=== PATIENT | male | born 1995 | race Caucasian/White ===

== ENCOUNTER 2017-08-05 01:40 | Emergency (ER) | payer SELFPAY ==
[2017-08-05 01:52] VITALS: BP 160/83
--- NOTE | 2017-08-05 02:01 | EDM.PDOC ---
ED HPI GENERAL MEDICAL PROBLEM - General Chief Complaint: Lower Extremity Injury/Pain Stated Complaint: LEFT KNEE INJURY Time Seen by Provider: 08/05/17 01:55 Source of Information: Reports: Patient History Limitations: Reports: No Limitations - History of Present Illness INITIAL COMMENTS - FREE TEXT/NARRATIVE: The patient his his left knee with a sledge hammer yesterday afternoon. He could limp on his knee but not walk very well. He has had increased pain through the night. Onset: Sudden Duration: Day(s): (Yesterday afternoon) Location: Reports: Lower Extremity, Left (Knee) Quality: Reports: Sharp Severity: Moderate Improves with: Reports: None Worsens with: Reports: None Context: Reports: Activity (Hit his knee with a sledgehammer) Associated Symptoms: Reports: No Other Symptoms Left Knee Pain Score (Numeric/FACES): 9 - Related Data Allergies Allergy/AdvReac Type Severity Reaction Status Date / Time No Known Allergies Allergy Verified 08/05/17 01:47 Home Meds: Home Meds . [No Known Home Meds] 08/05/17 [History] Past Medical History - Past Surgical History Musculoskeletal Surgical History: Reports: Other (See Below) Other Musculoskeletal Surgeries/Procedures:: knee surgeries X 5 Social & Family History - Family History Family Medical History: Noncontributory - Tobacco Use Smoking Status *Q: Current Every Day Smoker Years of Tobacco use: 5 Packs/Tins Daily: 0.7 - Caffeine Use Caffeine Use: Reports: Coffee, Energy Drinks, Soda, Tea - Recreational Drug Use Recreational Drug Use: No Review of Systems - Review of Systems Review Of Systems: See Below Constitutional: Reports: No Symptoms Eyes: Reports: No Symptoms Ears: Reports: No Symptoms Nose: Reports: No Symptoms Mouth/Throat: Reports: No Symptoms Respiratory: Reports: No Symptoms Cardiovascular: Reports: No Symptoms GI/Abdominal: Reports: No Symptoms Genitourinary: Reports: No Symptoms Musculoskeletal: Reports: Other (Left knee pain) ED EXAM, GENERAL - Physical Exam Exam: See Below Exam Limited By: No Limitations General Appearance: Alert, No Apparent Distress Ears: Normal External Exam Nose: Normal Inspection Head: Atraumatic, Normocephalic Respiratory/Chest: No Respiratory Distress Extremities: Other (Mild edema to the left knee with pain upon palpation to the lower patella and medial knee.) Course - Vital Signs Last Recorded V/S: Last Vital Signs Temp 98.7 F 08/05/17 01:47 Pulse 105 H 08/05/17 01:47 Resp 16 08/05/17 01:47 BP 160/83 H 08/05/17 01:47 Pulse Ox 98 08/05/17 01:47 - Orders/Labs/Meds Orders: Active Orders 24 hr Category Date Time Status Knee Min 4V Lt [CR] Stat Exams 08/05/17 01:58 Taken - Re-Assessments/Exams Free Text/Narrative Re-Assessment/Exam: 08/05/17 02:01 I have ordered an x-ray of his knee. 08/05/17 02:37 His x-rays look good. I will give him a knee immobilizer and crutches and something for pain. Departure - Departure Time of Disposition: 14:40 Disposition: Home, Self-Care 01 Condition: Good Clinical Impression: Contusion of left knee Qualifiers: Encounter type: initial encounter Qualified Code(s): S80.02XA - Contusion of left knee, initial encounter - Discharge Information Referrals: PCP,None [Primary Care Provider] - Checo Cortez MD [Physician] - 1 Week Forms: ED Department Discharge Additional Instructions: Ice your knee for 15 minutes every other hour while awake for 2 days. Wear the knee immobilizer and use the crutches as needed for pain. Follow up with Dr Cortez in 1 week if not better. - My Orders Last 24 Hours: My Active Orders 08/05/17 01:58 Knee Min 4V Lt [CR] Stat - Assessment/Plan Last 24 Hours: My Active Orders 08/05/17 01:58 Knee Min 4V Lt [CR] Stat
--- NOTE | 2017-08-05 12:56 | CR ---
Left knee: Four views of the left knee were obtained. Comparison: No previous study. No joint effusion is seen. Medial and lateral joint spaces are maintained in height. No fracture or other bony abnormality is seen. Impression: 1. No joint effusion, no bony fracture is seen. Diagnostic code #1
== END 2017-08-05 02:59 | disposition home or self-care (01) ==
LOC: JD.ED 01:40
DX: S80.02XA Contusion of left knee, initial encounter (principal); R05 Cough; Z98.890 Other specified postprocedural states; W22.8XXA Striking against or struck by other objects, initial encounter
CPT/HCPCS: 73564-26-LT; 73564-LT; 99283; 99284

== ENCOUNTER 2018-11-16 15:36 | Emergency (ER) | payer BC ==
[2018-11-16 15:51] VITALS: BP 148/88
--- NOTE | 2018-11-16 16:01 | EDM.PDOC ---
ED HPI GENERAL MEDICAL PROBLEM - General Chief Complaint: Upper Extremity Injury/Pain Stated Complaint: RIGHT WRIST INJURY/SLIPPED ON ICE Time Seen by Provider: 11/16/18 15:45 Source of Information: Reports: Patient, RN Notes Reviewed - History of Present Illness INITIAL COMMENTS - FREE TEXT/NARRATIVE: 22 year old male slipped on ice last evening coming down on R hand. R wrist pain worse today, especially with any type of movement. No other pain or injury from fall. Right Wrist Pain Score (Numeric/FACES): 10 - Related Data Allergies Allergy/AdvReac Type Severity Reaction Status Date / Time No Known Allergies Allergy Verified 11/16/18 15:51 Home Meds: Home Meds . [No Known Home Meds] 08/05/17 [History] Past Medical History - Past Health History Medical/Surgical History: Denies Medical/Surgical History - Past Surgical History Musculoskeletal Surgical History: Reports: Other (See Below) Other Musculoskeletal Surgeries/Procedures:: knee surgeries X 5 Social & Family History - Family History Family Medical History: Noncontributory - Tobacco Use Smoking Status *Q: Current Every Day Smoker Years of Tobacco use: 5 Packs/Tins Daily: 0.5 - Caffeine Use Caffeine Use: Reports: Coffee, Energy Drinks, Soda, Tea - Recreational Drug Use Recreational Drug Use: No Review of Systems - Review of Systems Review Of Systems: See Below Constitutional: Reports: No Symptoms Eyes: Reports: No Symptoms Respiratory: Denies: Shortness of Breath Cardiovascular: Denies: Chest Pain GI/Abdominal: Denies: Nausea, Vomiting Musculoskeletal: Reports: Joint Pain (R wrist). Denies: Neck Pain, Back Pain, Leg Pain Skin: Denies: Bruising ED EXAM, GENERAL - Physical Exam Exam: See Below General Appearance: Alert, No Apparent Distress Eye Exam: Bilateral Eye: PERRL Head: Atraumatic. No: Facial Swelling Neck: Supple Respiratory/Chest: No Respiratory Distress Extremities: Other (there is tenderness of the R wrist, radial aspect, pain with flexion and extension, hand, elbow nontender). No: Joint Swelling, Leg Pain Skin Exam: Warm, Dry, Normal Color Course - Vital Signs Last Recorded V/S: Last Vital Signs Temp 97.6 F 11/16/18 15:49 Pulse 86 11/16/18 15:49 Resp 16 11/16/18 15:49 BP 148/88 H 11/16/18 15:49 Pulse Ox 100 11/16/18 15:49 - Re-Assessments/Exams Free Text/Narrative Re-Assessment/Exam: 11/16/18 16:40 X rays no visible fx Departure - Departure Time of Disposition: 16:40 Disposition: Home, Self-Care 01 Condition: Fair Clinical Impression: Fall Qualifiers: Encounter type: initial encounter Qualified Code(s): W19.XXXA - Unspecified fall, initial encounter Right wrist sprain Qualifiers: Encounter type: initial encounter Qualified Code(s): S63.501A - Unspecified sprain of right wrist, initial encounter - Discharge Information Instructions: Wrist Sprain, Adult Referrals: PCP,None [Primary Care Provider] - Forms: ED Department Discharge Additional Instructions: velcroe wrist splint for comfort and protection. advil or ibuprofen 600 mg 2 to 3 times daily for discomfort as needed. Follow up with your regular provider or Orthopedist of choice if pain not resolving over the next 7 to 10 days as expected.
--- NOTE | 2018-11-16 16:24 | CR ---
Right wrist: 4 views of the right wrist were obtained. Comparison: No previous study. Joint spaces are maintained. Small bony density is suggested on one view of the ulnar side of the distal radius which is well corticated and most likely representing old injury. No acute fracture, dislocation or other bony abnormality is definitely seen. Impression: 1. Finding as noted above. Nothing acute is appreciated. If patient remains symptomatic, CT study could be obtained to further evaluate. Diagnostic code #3
== END 2018-11-16 16:49 | disposition home or self-care (01) ==
LOC: JD.ED 15:36
DX: S63.501A Unspecified sprain of right wrist, initial encounter (principal); F17.210 Nicotine dependence, cigarettes, uncomplicated; W00.0XXA Fall on same level due to ice and snow, initial encounter
CPT/HCPCS: 73110-26-RT; 73110-RT; 99282; 99283

== ENCOUNTER 2021-01-04 21:54 | Emergency (ER) | payer BC, OTHER ==
[2021-01-04 22:06] VITALS: BP 136/82; PULSE 91
[2021-01-04] MEDS ORDERED: Lidocaine 1% 10 ML MDV INJECT ONE (22:15)
--- NOTE | 2021-01-04 22:19 | EDM.PDOC ---
ED HPI GENERAL MEDICAL PROBLEM - General Chief Complaint: Upper Extremity Injury/Pain Stated Complaint: hand injury Time Seen by Provider: 01/04/21 22:05 - History of Present Illness INITIAL COMMENTS - FREE TEXT/NARRATIVE: 25-year-old male presents the emergency room with a right hand injury. Patient was working on a tire on a trailer, and got his finger caught between the tire and the fender. This occurred to the right index finger radial aspect. Patient denies any other injury with this most unfortunate event. His last tetanus shot was about 2 years ago. He sustained another finger injury at that time and was due for tetanus update. Patient denies any other injury associated with his most unfortunate event. Patient denies any chronic medical conditions. Right Hand Pain Score (Numeric/FACES): 4 - Related Data Allergies Allergy/AdvReac Type Severity Reaction Status Date / Time No Known Allergies Allergy Verified 01/04/21 22:06 Home Meds: Home Meds cephALEXin [Keflex] 500 mg PO Q8H #30 cap 01/04/21 [Rx] Past Medical History - Past Health History Medical/Surgical History: Denies Medical/Surgical History - Past Surgical History HEENT Surgical History: Reports: Oral Surgery Musculoskeletal Surgical History: Reports: Other (See Below) Other Musculoskeletal Surgeries/Procedures:: knee surgeries X 5 Social & Family History - Family History Family Medical History: No Pertinent Family History - Tobacco Use Tobacco Use Status *Q: Current Every Day Tobacco User Years of Tobacco use: 6 Packs/Tins Daily: 0.5 - Caffeine Use Caffeine Use: Reports: Energy Drinks - Recreational Drug Use Recreational Drug Use: No - Living Situation & Occupation Occupation: Employed Review of Systems - Review of Systems Review Of Systems: See Below Constitutional: Reports: No Symptoms Respiratory: Reports: No Symptoms Cardiovascular: Reports: No Symptoms GI/Abdominal: Reports: No Symptoms ED EXAM, GENERAL - Physical Exam Exam: See Below Exam Limited By: No Limitations General Appearance: Alert, No Apparent Distress Head: Atraumatic, Normocephalic Neck: Normal Inspection, Supple, Non-Tender, Full Range of Motion. No: Lymphadenopathy (L), Lymphadenopathy (R) Respiratory/Chest: No Respiratory Distress, Lungs Clear, Normal Breath Sounds Cardiovascular: Regular Rate, Rhythm, No Edema, No Murmur Extremities: Other (Examination of the right hand shows superficial laceration involving the medial aspect of the right index finger from about the level of the proximal interphalangeal joint down to the base of the nail plate. This is a dirty wound. Patient has intact flexor and extensor function at all joint levels of the digit. Neurovascular status appears to be intact.) ED TRAUMA EXTREMITY PROCEDURES - Laceration/Wound Repair Right Digit - 1st (Thumb) Lac/Wound Length In cm: 4 Appearance: Superficial, Irregular Distal NVT: Neuro & Vascular Intact Anesthetic Type: Digital Local Anesthesia - Lidocaine (Xylocaine): 1% Plain Local Anesthetic Volume: 2cc Skin Prep: Saline Exploration/Debridement/Repair: Wound Explored, In a Bloodless Field, Explored to Base, Moderate Debridement # of Sutures: 0 Progress/Comments: The wound was explored after satisfactory anesthesia was done. It is closed up pretty good requiring no stitches. Some nonviable tissue was debrided. Sterile dressing was applied and splinting with aluminum foam splint was placed. Course - Vital Signs Last Recorded V/S: Last Vital Signs Temp 36.4 C 01/04/21 22:01 Pulse 91 01/04/21 22:01 Resp 16 01/04/21 22:01 BP 136/82 01/04/21 22:01 Pulse Ox 98 01/04/21 22:01 - Orders/Labs/Meds Orders: Active Orders 24 hr Category Date Time Status Fingers Second Digit Rt F6 [CR] Stat Exams 01/04/21 22:11 Taken cephALEXin [Keflex] Med 01/04/21 23:04 Once 500 mg PO ONETIME ONE Meds: Medications Discontinued Medications Generic Name Dose Route Start Last Admin Trade Name Bhargavq PRN Reason Stop Dose Admin Lidocaine HCl 10 ml 01/04/21 22:15 01/04/21 22:24 Xylocaine 1% INJECT 01/04/21 22:16 10 ml ONETIME ONE Administration - Re-Assessments/Exams Free Text/Narrative Re-Assessment/Exam: 01/04/21 23:09 X-ray examination of the index finger of the right hand shows no acute fracture dislocation small amount of tissue swelling radial aspect of the digit Departure - Departure Time of Disposition: 23:11 Disposition: Home, Self-Care 01 Clinical Impression: Crushing injury of right index finger - Discharge Information Referrals: PCP,None [Primary Care Provider] - Forms: ED Department Discharge Additional Instructions: Return to the emergency room with any questions problems or worsening symptoms. I [facility] it is for cephalexin, this is an antibiotic, take 1 3 times a day for 10 days. Your first dose was given here in the emergency room. Keep the wound clean and dry for the next 48 hours then you may let water gently roll over the area and then gently dab dry no scrubbing. No sutures were placed. Wear the splint for 1 week. You may take the splint off a couple of times a day to do gentle range of motion exercises with your finger. After 1 week keep a good clean dressing over the wound and resume normal activities. Sepsis Event Note (ED) - Evaluation Sepsis Screening Result: No Definite Risk - Focused Exam Vital Signs: Vital Signs Temp Pulse Resp BP Pulse Ox 01/04/21 22:01 36.4 C 91 16 136/82 98 - My Orders Last 24 Hours: My Active Orders 01/04/21 22:11 Fingers Second Digit Rt F6 [CR] Stat 01/04/21 23:04 cephALEXin [Keflex] 500 mg PO ONETIME ONE - Assessment/Plan Last 24 Hours: My Active Orders 01/04/21 22:11 Fingers Second Digit Rt F6 [CR] Stat 01/04/21 23:04 cephALEXin [Keflex] 500 mg PO ONETIME ONE
[2021-01-04] MEDS ORDERED: Cephalexin 500 MG Cap PO ONE (23:04)
--- NOTE | 2021-01-05 08:14 | CR ---
Right second finger: 4 views of the right second finger were obtained. Comparison: No prior second finger exam. Soft tissue swelling is noted. No acute fracture, dislocation or other bony abnormality is appreciated. Impression: 1. Soft tissue swelling. 2. No acute osseous abnormality is appreciated. Diagnostic code #2
== END 2021-01-04 23:24 | disposition home or self-care (01) ==
LOC: JD.ED 21:54
DX: S67.190A Crushing injury of right index finger, initial encounter (principal); S61.210A Laceration without foreign body of right index finger without damage to nail, initial encounter; Z72.0 Tobacco use; W23.0XXA Caught, crushed, jammed, or pinched between moving objects, initial encounter
CPT/HCPCS: 73140; 99283; A9270; 12002